=== PATIENT | male | born 1975 | race Caucasian/White ===

== ENCOUNTER 2024-12-19 12:54 | Emergency (ER) | payer BC, SELFPAY ==
[2024-12-19 12:56] VITALS: BMI 28.5
[2024-12-19 13:38] VITALS: BP 124/84; PULSE 100; RESP 18; TEMP 37.1; O2SAT 95
[2024-12-19] MEDS: predniSONE 20 MG TABLET 60 MG PO (13:49)
[2024-12-19] MEDS: FAMOTIDINE 20 MG TABLET 40 MG PO (13:49)
[2024-12-19] MEDS: DiphenhydrAMINE 25 MG CAPSULE 50 MG PO (13:51)
[2024-12-19 13:52] VITALS: BP 124/84; PULSE 100
[2024-12-19] MEDS: EPINEPHrine INJ 1 MG/ML AMP 0.3 MG SC (13:52)
--- NOTE | 2024-12-19 14:41 | PD.EDALLER ---
ED Allergic Reaction RME/HPI General Chief complaint: Allergic Reaction Stated complaint: BEE STING, ALLERGIC TO BEES Time Seen by Provider: 12/19/24 13:22 Source: patient Arrival date/time: 12/19/24 12:54 The patient is a 49-year-old male who presented to the emergency department approximately 30 minutes after sustaining a bee sting to the right shoulder. 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 He denies shortness of breath, wheezing, or oral/pharyngeal involvement. He does report localized itching at the sting site. Mode of arrival: ambulatory Related Data Home Medications ?Medication ?Instructions ?Recorded ?Confirmed buprenorphine 8 mg-naloxone 2 mg 1 film buccal TID 01/29/22 01/29/22 sublingual film (Suboxone) duloxetine 60 mg capsule,delayed 60 mg PO QDAY 01/29/22 01/29/22 release (Cymbalta) etanercept 50 mg/mL (1 mL) 50 mg subcut QWEEK 01/29/22 01/29/22 subcutaneous syringe (Enbrel) ibuprofen 125 mg-acetaminophen 250 1 tab PO BID 01/29/22 01/29/22 mg tablet (Advil Dual Action) prednisone 5 mg tablet 5 mg PO DAILY 01/29/22 01/29/22 sennosides 8.6 mg-docusate sodium 1 cap PO DAILY 01/29/22 01/29/22 50 mg capsule (Senna Plus) Previous Rx's ?Medication ?Instructions ?Recorded clindamycin HCl 300 mg capsule 300 mg PO QID #40 caps 06/09/22 diphenhydramine HCl 25 mg capsule 25 mg PO TID PRN allergy symptoms 12/19/24 (Banophen) #30 caps epinephrine 0.3 mg/0.3 mL 0.3 ml subcut PRN PRN anaphylaxis 12/19/24 injection, auto-injector #2 ea Allergies Allergy/AdvReac Type Severity Reaction Status Date / Time beeswax Allergy Verified 12/19/24 12:55 Review of Systems Review of Systems Systems Reviewed: All systems reviewed, normal except as documented Narrative Review of Systems: Gen: No fever, no chills, no weight loss EYES: No discharge, no visual changes, no pain HEENT: No ear pain, no congestion, no sore throat PULM: No shortness of breath, no cough, no congestion CV: No chest pain, no dyspnea on exertion, no palpitations GI: No nausea, no vomiting, no diarrhea, no pain, no constipation : No frequency, no urgency,? no dysuria Musc/skel: No joint pain, no back pain Skin: +bee sting neck shoulder Psyc: No hallucinations, no depression Heme/Lymph: No easy bleeding or bruising tendencies Neuro: No weakness, no headache ED Exam Narrative Physical exam: General: Sittiing in Exam table in no acute distress, answering questions appropriately HENT: normocephalic, atraumatic, EOMI, PERRLA, moist mucous membranes Chest: chest wall is nontender Cardiac: regular rate and rhythm, normal S1 and S2, no murmurs, rubs, or gallops, capillary refill ?2 seconds Pulmonary: clear to auscultation bilaterally, no wheezing, crackles, or rhonchi Abdominal: active bowel sounds, soft, nontender, nondistended Neuro: A&OX3, CN II-XII intact, sensation grossly intact bilaterally in UE and LE. Skin: Localized erythema and swelling at the right shoulder. No signs of respiratory distress or systemic involvement. Ext: no lower extremity edema Course Quality Measures none Orders Category Date Time Status DiphenhydrAMINE [Benadryl] Med 12/19/24 13:39 Discontinued 50 mg PO X1 ONE EPINEPHrine Inj [Adrenalin Inj] Med 12/19/24 13:39 Discontinued 0.3 mg SC X1 ONE Famotidine [Pepcid] Med 12/19/24 13:39 Discontinued 40 mg PO X1 ONE predniSONE Med 12/19/24 13:37 Discontinued 60 mg PO X1 ONE Vital Signs Vital signs: Vital Signs Temperature 98.7 F 12/19/24 13:38 Pulse Rate 100 12/19/24 13:38 Respiratory Rate 18 12/19/24 13:38 Blood Pressure 124/84 12/19/24 13:38 Pulse Oximetry (%) 95 12/19/24 13:38 Oxygen Delivery Method Room Air 12/19/24 13:38 Allergic Reaction MDM Narrative MDM Narrative:: The patient was treated in the emergency department with intramuscular epinephrine, diphenhydramine, and corticosteroids. He remained hemodynamically stable throughout his stay, with no changes in vital signs, no hypoxia, and no evidence of respiratory involvement. The patient was observed for three hours without any progression or change in condition. Given his stability, the patient is deemed safe for discharge. Prescriptions for diphenhydramine and an epinephrine auto-injector have been sent to his pharmacy. He was advised to follow up with his primary care provider and to return to the emergency department immediately if symptoms worsen or if his condition changes. Patient data External records reviewed:: [facility] previous records Clinical information provided by:: patient Social determinants that could affect healthcare access:: none Patient has the following chronic illnesses:: no How is presenting disease/condition affected by chronic disease/condition?: no chronic disease Evaluation data The following diagnostics were reviewed and interpreted by me:: other (specify) Lab and/or radiology exams considered but not ordered:: no Interpretation Summary: na Medications / Prescriptions Medications or Prescriptions considered but not ordered:: no Medication administrations:: Medication Administration History Discontinued Medications Diphenhydramine HCl (Diphenhydramine 25 Mg Capsule) 50 mg PO X1 ONE Stop: 12/19/24 13:40 Last Admin: 12/19/24 13:51 Dose: 50 mg Documented By: OA Epinephrine HCl (Epinephrine Inj 1 Mg/Ml Amp) 0.3 mg SC X1 ONE Stop: 12/19/24 13:40 Last Admin: 12/19/24 13:52 Dose: 0.3 mg Documented By: OA Famotidine (Famotidine 20 Mg Tablet) 40 mg PO X1 ONE Stop: 12/19/24 13:40 Last Admin: 12/19/24 13:49 Dose: 40 mg Documented By: OA Prednisone (Prednisone 20 Mg Tablet) 60 mg PO X1 ONE Stop: 12/19/24 13:38 Last Admin: 12/19/24 13:49 Dose: 60 mg Documented By: OA All medications administered and effective Consultations Consultation(s) initiated? (list below): No Diagnosis Differential Diagnosis allergic reaction: anaphylaxis, allergic reaction, angioedema, contact dermatitis and adverse reaction to drug Most likely diagnosis given after review of the tests above:: Reactions, bee sting Admission Indicated Admission indicated?: not indicated Admission Request Was there a request for admission?: No Disposition Plan Disposition Plan: Discharge Discharge Attestation Discharge Attestation: The patient and all family members were given an opportunity to ask questions and understood the discharge instructions. Discharge instructions specifically effects, indications for sooner follow up or return to the emergency department, and the expected course of current diagnosis. Patient condition: Stable Discharge Plan Plan Patient Disposition: HOME (Self Care) Patient condition on transfer: Stable Prescriptions/Referrals Prescriptions/Med Rec: New diphenhydramine HCl [Banophen] 25 mg capsule 25 mg PO TID PRN (Reason: allergy symptoms) Qty: 30 0RF epinephrine 0.3 mg/0.3 mL auto-injector 0.3 ml subcut PRN PRN (Reason: anaphylaxis) Qty: 2 0RF Rx Instructions: 0.3mg IM x1. No Action prednisone 5 mg Tablet 5 mg PO DAILY duloxetine [Cymbalta] 60 mg Capsule,Delayed Release(Dr/Ec) 60 mg PO QDAY Enbrel 50 mg/mL (1 mL) Syringe 50 mg SUBCUT QWEEK buprenorphine-naloxone [Suboxone] 8-2 mg Film 1 film BUCCAL TID Senna Plus 8.6-50 mg Capsule 1 cap PO DAILY Advil Dual Action 125-250 mg Tablet 1 tab PO BID clindamycin HCl 300 mg capsule 300 mg PO QID Qty: 40 0RF Referrals: Tomás Mcintyre MD [Primary Care Provider] - In 1 week Problem List Clinical Impression: Anaphylaxis, Bee sting Patient/Caregiver Discharge Instructions Discharge Activity: activity as tolerated Education Materials: ED Anaphylaxis Additional Instructions: These follow-up with your primary doctor. EpiPen refill was sent to the pharmacy. Return to the emergency department for any worsening symptoms change in condition Print Language: Yakut Stand Alone Forms: Lucie Award Info., Patient Portal Info Letter PA/VICE PRESIDENT OF DEVELOPMENT Supervising Physician PA/VICE PRESIDENT OF DEVELOPMENT Supervising Physician: dr. godinez
== END 2024-12-19 15:07 | disposition home or self-care (01) ==
PROVIDERS: Emergency Provider Family Medicine; PCP Family Medicine
DX: T63.441A Toxic effect of venom of bees, accidental (unintentional), initial encounter (principal); T78.2XXA Anaphylactic shock, unspecified, initial encounter; X58.XXXA Exposure to other specified factors, initial encounter
CPT/HCPCS: 96372; 99283; J0171; J7512; A9270